=== PATIENT | female | born 1950 | race Caucasian/White ===

== ENCOUNTER 2016-06-03 09:06 | Emergency (ER) | payer MEDICARE ==
[~2016-06-03] VITALS: Ht 154.9 cm; Wt 45.7 kg
[2016-06-03 09:50] VITALS: BP 92/67
== END 2016-06-03 09:52 | disposition home or self-care (01) ==
LOC: ED 09:08
DX: J20.8 Acute bronchitis due to other specified organisms (principal); J01.00 Acute maxillary sinusitis, unspecified; J01.10 Acute frontal sinusitis, unspecified
CPT/HCPCS: 99282; 99283